=== PATIENT | male | born 1945 | race Caucasian/White ===

== ENCOUNTER 2021-10-23 08:05 | Emergency (ER) | payer MEDICARE, OTHER ==
[2021-10-23 08:44] LABS: BASOPHIL 0.2 % (0-2); EOSINOPHIL 1.6 % (0-7); HCT 45.9 % (42.0-52.0); HGB 15.3 g/dl (13.2-18.0); LYMPHOCYTE 32.4 % (15-48); MCH 30.5 pg (25.0-31.0); MCHC 33.3 g/dL (32.0-36.0); MCV 91.4 fL (78.0-100.0); MPV 9.5 fL (6.0-9.5); NEUTROPHIL 57.6 % (41-80); NRBC 0; PLT 192 K/uL (150-400); RBC 5.02 M/uL (4.70-6.00); RDW 13.2 % (11.5-14.0); WBC 8.5 K/uL (4.0-10.5)
[2021-10-23 08:49] LABS: INR 0.96 (0.9-1.2); PROTHROMBIN TIME 12.5 SECONDS (11.9-13.9); PTT 28.8 SECONDS (24.9-34.6)
[2021-10-23 08:56] LABS: ALBUMIN 3.5 g/dL (3.4-5.0); BILIRUBIN - TOTAL 0.7 mg/dL (0.2-1.0); BUN/CREAT RATIO (CALC) 19.8 RATIO; CREATININE 1.06 mg/dL (0.67-1.17); POTASSIUM 3.8 mmol/L (3.5-5.1); TOTAL PROTEIN 7.5 g/dL (6.4-8.2)
[2021-10-23 09:33] LABS: CORONAVIRUS 2019 SARS-COV-2 NEGATIVE (NEGATIVE); INFLUENZA A NAA NEGATIVE (NEGATIVE)
[2021-10-23] MEDS ORDERED: TOPROL XL 25MG25 MG PO ×2 (12:49→12:54)
[2021-10-23] MEDS ORDERED: ASPIRIN EC81 MG PO ×2 (12:49→12:54)
== END 2021-10-23 19:00 | disposition other institution (70) ==
LOC: FER 08:05
PROVIDERS: Emergency Medicine
DX: I48.91 Unspecified atrial fibrillation (principal); K21.9 Gastro-esophageal reflux disease without esophagitis; Z20.822 Contact with and (suspected) exposure to COVID-19; Z88.0 Allergy status to penicillin
CPT/HCPCS: 36415; 36600; 71045; 71275; 80053; 82803; 83880; 84484; 85025; 85379; 85610; 85730; 93005; Q9967; U0002